=== PATIENT | female | born 1990 | race Caucasian/White ===

== ENCOUNTER → 2020-03-19 12:48 | Outpatient (BNVA) | payer MEDICAID, SELFPAY | PROVIDERS: Visit Provider Emergency Medicine | DX: Z32.01 Encounter for pregnancy test, result positive (principal) | CPT/HCPCS: 81025 ==

== ENCOUNTER 2020-03-21 10:53 | Emergency (ER) | payer MEDICAID, SELFPAY ==
[2020-03-21 11:08] VITALS: BP 120/82; PULSE 76; RESP 18; TEMP 36.6; O2SAT 99; BMI 32.3
[2020-03-21 11:30] VITALS: BP 107/76; PULSE 78; RESP 14; O2SAT 95
--- NOTE | 2020-03-21 11:39 | W.ED.PREGNAN ---
HPI - General: Chief complaint: OB/Uterine Contractions Stated complaint: possible miscarriage Time Seen by Provider: 03/21/20 11:22 Source: patient Mode of arrival: ambulatory Limitations: no limitations History of Present Illness: HPI Narrative: bleeding, possible miscarriage 6 weeks and 6 days Date of Last Menstrual Period: 02/03/20 Related Data: : 2 Review of Systems General: Reports: 10 or more systems reviewed and unremarkable except in HPI and below PFSH ED PFSH: Social History Smoking and tobacco status: never smoked Alcohol intake: never Substance/Drug Use: never History of recent travel: No Female Reproductive History: Date of last menstrual period: 02/03/20 : 2 Physical Exam Const: COMMON NORMALS: no acute distress, patient oriented x3, no limitations and alert GENERAL APPEARANCE: cooperative and comfortable ORIENTATION/CONSCIOUSNESS: Yes awake, Yes oriented to person, Yes oriented to place and Yes oriented to time HENMT: COMMON NORMALS: normocephalic, atraumatic, external ears normal, EAC's normal, TM's normal bilaterally and Normal external nose present HEAD & SCALP: normal to inspection, normocephalic and atraumatic FACE & SINUS: normal facial exam, sinuses nontender and face symmetric NOSE: Normal external nose present, Normal nares present and No nasal discharge present EXTERNAL EAR: Yes external ears normal EXTERNAL AUDITORY CANAL: EAC's normal TYMPANIC MEMBRANE: TM's normal bilaterally MOUTH: Normal oral and palatal mucosa present, lip normal and tongue normal THROAT: posterior oropharynx normal, tonsils normal and uvula midline Eye: COMMON NORMALS: Equal, round and reactive pupils present, EOMs intact bilaterally and conjunctivae normal GENERAL EYE: appearance normal, both eyes and all related structures and normal light reflex EYELID: eyelids normal CONJUNCTIVA: Yes conjunctivae normal PUPIL: Yes Equal, round and reactive pupils present EOM: Yes EOM abnormal DIRECT OPHTHALMOSCOPY: Yes normal light reflex Neck/C-Spine: COMMON NORMALS: full ROM, no lymphadenopathy, supple, no meningeal signs, no JVD and Thyroid normal GENERAL: Yes normal visual inspection THYROID: Thyroid normal CERVICAL SPINE: Yes cervical ROM normal and Yes normal cervical lordosis Lymph: LYMPHATIC: no lymphadenopathy noted Chest: COMMONS NORMALS: normal inspection of the chest and normal palpation of entire chest wall Resp: COMMON NORMALS: normal respiratory effort, No retractions and clear to auscultation bilaterally AUSCULTATION: clear to auscultation bilaterally Cardio: COMMON NORMALS: no JVD, regular rate, regular rhythm, S1 normal heart sound present, S2 normal heart sound present, No gallops present (Cardio), No clicks present (Cardio), No murmurs present (Cardio), No rub (Cardio) and Peripheral pulses 2+ throughout RATE: regular rate RHYTHM: regular rhythm HEART SOUNDS: S1 normal heart sound present and S2 normal heart sound present PERIPHERAL PULSES: Peripheral pulses 2+ throughout GI: COMMON NORMALS: Normal to inspection, nondistended, normoactive bowel sounds present, Soft to palpation, non-tender and no masses PALPATION: Yes Soft to palpation : COMMON NORMALS: Yes no CVA tenderness and Yes normal external appearance BLADDER/KIDNEY EXAM: Yes no CVA tenderness Back/Pelvis: COMMON NORMALS: no CVA tenderness, thoracic and lumbar spine normal to inspection, no thoracic nor lumbar tenderness and thoraco-lumbar ROM normal Extremity: COMMON NORMALS: normal to inspection, full ROM, capillary refill normal, no joint enlargement, no clubbing, cyanosis or edema, no calf tenderness and no pedal edema GENERAL: Yes normal exam except as noted Neuro: COMMON NORMALS: patient oriented x3, moves all extremities, no focal motor deficits, no sensory deficits noted and gait normal SENSORIUM/ORIENTATION: Yes alert, Yes oriented to person, Yes oriented to place and Yes oriented to time MENINGEAL SIGNS: Yes no meningeal signs Psych: COMMON NORMALS: mental status grossly normal, Normal thought process present, cooperative, normal affect, speech normal and activity/motor behavior normal SPEECH: Yes normal speech THOUGHT PROCESS: Normal thought process present Skin: COMMON NORMALS: no rashes or lesions noted, no wounds and turgor normal GENERAL SKIN EXAM: no rashes or lesions noted and turgor normal Course ED course: Pt presents with bleeding after two positive tests. She suspects she is 6 weeks and 6 days. Bleeding began last night. She is having no cramping blood bleeding has increased this morning. US ordered and UA. hcG quant. Reevaluation(s): Reevaluation #1: Serum quant 42. Awaiting US. UA is clean. No indication of infection. Time: 12:37 Reevaluation #2: Pt US shows no intrauterine gestation at this time. Follow up with PCP for hCg as indicated. Return to ER with worsening of symptoms. Time: 13:44 Vital Signs: Vital signs: Vital Signs Temperature 97.9 F 03/21/20 11:08 Pulse Rate 78 03/21/20 11:30 Respiratory Rate 14 03/21/20 11:30 Blood Pressure 107/76 03/21/20 11:30 Pulse Oximetry 95 03/21/20 11:30 MDM - OB/Uterine Contractions Lab Data: Labs: Lab Results 03/21/20 03/21/20 03/21/20 Range/Units 11:35 12:07 12:07 WBC (4.0-10.0) 10^3/ uL RBC (4.1-5.3) 10^6/u L Hgb (11.5-15.3) g/dL Hct (37.0-47.0) % MCV (81-99) fL MCH (28.0-34.0) pg MCHC (30.0-36.0) g/dL RDW (12.1-15.1) % Plt Count (130-400) 10^3/c mm MPV (7.4-10.4) fL Neut % (Auto) % Lymph % (Auto) % Cass % (Auto) % Eos % (Auto) % Baso % (Auto) % Neut # (Auto) (1.8-7.7) 10^3/u L Lymph # (Auto) (0.8-4.8) 10^3/u L Cass # (Auto) (0.2-0.9) 10^3/u L Eos # (Auto) (0.0-0.8) 10^3/u L Baso # (Auto) (0.0-0.1) 10^3/u L Nucleated RBC % (a uto) % Nucleated RBCs # /100WBC Ser , Jordan i-Qnt 42.41 mIU/mL Urine Color Yellow (Yellow) Urine Appearance Sl hazy (CLEAR) Urine pH 6 (5-7) Ur Specific Gravit y 1.000 L (1.005-1.030) Urine Protein Neg (Negative) Urine Glucose (UA) Norm (Normal) Urine Ketones Negative (Negative) Urine Blood 2+ H (Negative) Urine Nitrate Negative (Negative) Urine Bilirubin Neg (Negative) Urine Urobilinogen Neg (Negative) mg/dL Ur Leukocyte Elizabeth ase Negative (Negative) Urine RBC 0-4 H (0-2) /hpf Urine WBC None (0-5) /hpf Ur Squamous Epith Cells 10-15 H (0-5) /hpf Amorphous Sediment Not Reportable Urine Bacteria 1+ H (NONE) /hpf Rho(D) Type Positive 03/21/20 Range/Units 12:07 WBC 6.1 (4.0-10.0) 10^3/ uL RBC 4.46 (4.1-5.3) 10^6/u L Hgb 13.1 (11.5-15.3) g/dL Hct 40.3 (37.0-47.0) % MCV 90.4 (81-99) fL MCH 29.4 (28.0-34.0) pg MCHC 32.5 (30.0-36.0) g/dL RDW 12.2 (12.1-15.1) % Plt Count 269 (130-400) 10^3/c mm MPV 10.7 H (7.4-10.4) fL Neut % (Auto) 69.5 % Lymph % (Auto) 24.1 % Cass % (Auto) 5.0 % Eos % (Auto) 0.7 % Baso % (Auto) 0.5 % Neut # (Auto) 4.22 (1.8-7.7) 10^3/u L Lymph # (Auto) 1.5 (0.8-4.8) 10^3/u L Cass # (Auto) 0.3 (0.2-0.9) 10^3/u L Eos # (Auto) 0.0 (0.0-0.8) 10^3/u L Baso # (Auto) 0.0 (0.0-0.1) 10^3/u L Nucleated RBC % (a uto) 0 % Nucleated RBCs # 0.0 /100WBC Ser , Jordan i-Qnt mIU/mL Urine Color (Yellow) Urine Appearance (CLEAR) Urine pH (5-7) Ur Specific Gravit y (1.005-1.030) Urine Protein (Negative) Urine Glucose (UA) (Normal) Urine Ketones (Negative) Urine Blood (Negative) Urine Nitrate (Negative) Urine Bilirubin (Negative) Urine Urobilinogen (Negative) mg/dL Ur Leukocyte Elizabeth ase (Negative) Urine RBC (0-2) /hpf Urine WBC (0-5) /hpf Ur Squamous Epith Cells (0-5) /hpf Amorphous Sediment Urine Bacteria (NONE) /hpf Rho(D) Type Imaging Data^: US: Radiologist's impression: [facility] [address] [place] [address] Ultrasound Report Signed Patient: Patricia Morales Unit #: [id number] : 1990 Age/Sex: 29 / F ADM Date: 03/21/20 Loc: ER Room/Bed: Attending Dr: Ordering Provider/Ordering MD: Tita Hayes NP Date of Service: 03/21/20 Procedure(s): US OB <=14 wk fetus w transvag Accession Number(s): [id number] Report Number: [id number] WS: [id number] EARLY OBSTETRICAL ULTRASOUND (<14 WEEKS). HISTORY: bleeding COMPARISON: None available. Transabdominal and transvaginal imaging is performed. Uterus is retroverted. Mildly thickened endometrium. No intrauterine gestational sac is identified. Endometrial thickness is 1.8 cm. RIGHT ovary measures 3.9 x 2.2 x 2.5 cm. Small follicles are present. There is a small amount of free fluid in the RIGHT adnexa. Within the free fluid there is an area of increased echogenicity which may be clot. LEFT ovary measures 2.8 x 1.6 x 3.1 cm. Small follicles. US/US OB <=14 wk fetus w transvag IMPRESSION: 1. No intrauterine gestation identified. There is mild thickening of the endometrium. Ectopic cannot be excluded if there is a positive beta hCG. 2. Small amount of free fluid in the RIGHT adnexa. 3. Recommend follow-up with beta hCG evaluation and ultrasound evaluation as necessary to exclude ectopic. Dictated By: Yolanda Maloney DO Signed By: Yolanda Maloney DO Signed Date/Time: 03/21/20 1304 DD/ 1302 Discharge Plan Discharge Patient Disposition: Home Clinical Impression: Complete miscarriage Condition: Stable Prescriptions: No Action 28 mg iron- 800 mcg Tablet 1 tab PO DAILY RF: 0 Discharge Orders: Discharge Order (Routine); Ordered 03/21/20 Ordered By: Tita Hayes Discharge Diet: Usual diet Discharge Activity: Increase activity as tolerated Activity Restrictions/Additional Instructions: Increase water, avoid sex until you have stopped bleeding. Return to ER if you develop a fever. Follow up with your primary for a repeat HcG level in the next 2 to 3 days. Stand Alone Forms: Work/School Release Coding Level of Care Code ED Hall Tender for Alixg Fwd Exam Comprehensive
--- NOTE | 2020-03-21 11:55 | US_ITS ---
WS: [id number] EARLY OBSTETRICAL ULTRASOUND (<14 WEEKS). HISTORY: bleeding COMPARISON: None available. Transabdominal and transvaginal imaging is performed. Uterus is retroverted. Mildly thickened endomet rium. No intrauterine gestational sac is identified. Endometrial thickness is 1.8 cm. RIGHT ovary measures 3.9 x 2.2 x 2.5 cm. Small follicles are present. There is a small amount of free fluid in the RIGHT adnexa. Within the free fluid there is an area of increased echogenicity which ma y be clot. LEFT ovary measures 2.8 x 1.6 x 3.1 cm. Small follicles. US/US OB <=14 wk fetus w transvag IMPRESSION: 1. No intrauterine gestation identified. There is mild thickening of the endom etrium. Ectopic cannot be excluded if there is a positive beta hCG. 2. Small amount of free fluid in the RIGHT adnexa. 3. Recommend follow-up with beta hCG evaluation and ultrasound evaluation as n ecessary to exclude ectopic.
[2020-03-21 12:13] LABS: Add Urine Microscopic? YES; Bilirubin Urine Neg (Negative); Blood Urine 2+ (Negative); Glucose Urine UA Norm (Normal); Ketones Urine Negative (Negative); Leukocyte Esterase Urine Negative (Negative); Nitrate Urine Negative (Negative); Protein Urine Neg (Negative); Urine Appearance SL Hazy (CLEAR); Urine Color Yellow (Yellow); Urobilinogen Urine Neg (Negative); pH Urine 6 (5-7)
[2020-03-21 12:14] LABS: Add Urine Culture? No; Bacteria Urine 1+ /hpf; RBC Urine 0-4 /hpf (0-2)
[2020-03-21 12:17] LABS: Basophils % 0.5 %; Eosinophils % 0.7 %; Hematocrit 40.3 % (37.0-47.0); Hemoglobin 13.1 g/dL (11.5-15.3); Lymphocytes # 1.5 10^3/uL (0.8-4.8); Lymphocytes % 24.1 %; Mean Corpuscular HGB Conc 32.5 g/dL (30.0-36.0); Mean Corpuscular Hemoglobin 29.4 pg (28.0-34.0); Mean Corpuscular Volume 90.4 fL (81-99); Mean Platelet Volume 10.7 fL (7.4-10.4); Monocytes # 0.3 10^3/uL (0.2-0.9); Neutrophils # 4.22 10^3/uL (1.8-7.7); Neutrophils % 69.5 %; Nucleated Red Blood Cells % 0 %; Platelet Count 269 10^3/cmm (130-400); Red Blood Count 4.46 10^6/uL (4.1-5.3); Red Cell Distribution Width 12.2 % (12.1-15.1); White Blood Count 6.1 10^3/uL (4.0-10.0)
[2020-03-21 12:32] LABS: HCG Quantitative 42.41 mIU/mL
--- NOTE | 2020-03-21 13:10 | PC.NURSE ---
Pt and family updated on plan of care, comfort measures offered, no other immediate needs identified, will continue to monitor.
== END 2020-03-21 14:07 | disposition home or self-care (01) ==
PROVIDERS: Emergency Medicine; Emergency Provider Nurse Practitioner Family
DX: O03.9 Complete or unspecified spontaneous abortion without complication (principal)
CPT/HCPCS: 12345; 36415; 76801; 76817; 81001; 84702; 85025; 99281; 99283

== ENCOUNTER → 2020-09-04 09:15 | Outpatient (BNVA) | payer MEDICAID, SELFPAY | PROVIDERS: Visit Provider Psychiatry & Neurology Psychiatry | DX: F32.9 Major depressive disorder, single episode, unspecified (principal) | CPT/HCPCS: 90792 ==

== ENCOUNTER → 2020-10-17 13:13 | Outpatient (BNVA) | payer MEDICAID, SELFPAY | PROVIDERS: Visit Provider Psychiatry & Neurology Psychiatry | DX: F32.9 Major depressive disorder, single episode, unspecified (principal) | CPT/HCPCS: 99214 ==

== ENCOUNTER → 2020-12-19 12:43 | Outpatient (BNVA) | payer MEDICAID, SELFPAY | PROVIDERS: Visit Provider Psychiatry & Neurology Psychiatry | DX: F32.9 Major depressive disorder, single episode, unspecified (principal) | CPT/HCPCS: 99214 ==

== ENCOUNTER → 2021-03-13 12:31 | Outpatient (BNVA) | payer MEDICAID, SELFPAY | PROVIDERS: Visit Provider Psychiatry & Neurology Psychiatry | DX: F32.9 Major depressive disorder, single episode, unspecified (principal) | CPT/HCPCS: 99214 ==

== ENCOUNTER → 2021-07-04 11:29 | Outpatient (BNVA) | payer MEDICAID, SELFPAY | PROVIDERS: Visit Provider Family Medicine | DX: M79.671 Pain in right foot (principal) | CPT/HCPCS: 73630 ==

== ENCOUNTER → 2021-07-20 12:27 | Outpatient (BNVA) | payer MEDICAID, SELFPAY | PROVIDERS: Visit Provider Nurse Practitioner Family | DX: Z11.52 Encounter for screening for COVID-19 (principal); Z20.822 Contact with and (suspected) exposure to COVID-19 | CPT/HCPCS: 87635 ==

== ENCOUNTER 2021-08-22 11:09 | Outpatient (CLI) | payer MEDICAID, SELFPAY | END 2021-08-22 11:10 | disposition home or self-care (01) | LOC: SPT 11:10 | PROVIDERS: Visit Provider Podiatrist Foot & Ankle Surgery | DX: Z46.89 Encounter for fitting and adjustment of other specified devices (principal); M72.2 Plantar fascial fibromatosis; M79.671 Pain in right foot | CPT/HCPCS: 97760; L4397 ==

== ENCOUNTER → 2022-01-22 13:58 | Outpatient (BNVA) | payer MEDICAID, SELFPAY | PROVIDERS: Visit Provider Nurse Practitioner Family | DX: N91.2 Amenorrhea, unspecified (principal); N91.1 Secondary amenorrhea; R11.0 Nausea; R53.83 Other fatigue | CPT/HCPCS: 80053; 84443; 84702 ==

== ENCOUNTER → 2022-02-05 15:11 | Outpatient (BNVA) | payer MEDICAID, SELFPAY | PROVIDERS: Visit Provider Podiatrist Foot & Ankle Surgery | DX: M21.6X1 Other acquired deformities of right foot (principal); M19.071 Primary osteoarthritis, right ankle and foot | CPT/HCPCS: 99213 ==

== ENCOUNTER → 2022-10-07 13:49 | Outpatient (BNVA) | payer MEDICAID, SELFPAY | PROVIDERS: Visit Provider Nurse Practitioner Family | DX: R10.9 Unspecified abdominal pain (principal); N39.0 Urinary tract infection, site not specified; G44.209 Tension-type headache, unspecified, not intractable | CPT/HCPCS: 80053 ==

== ENCOUNTER 2024-10-14 11:55 | Outpatient (CLI) | payer MEDICAID, SELFPAY ==
--- NOTE | 2024-10-14 12:00 | XR_ITS ---
WS: [id number] Exam: XR KUB [id number] Date/Time of Exam: 10/14/2024 12:21 PM Reason For Exam: K59.00 - Constipation, unspecified No bowel obstruction nor free air. Moderate amount of stool in the transverse and RIGHT colon. No sign of organ enlargement. Mild levoscoliosis of the lumbar spine. Remaining bony elements are unremarkable. XR/XR KUB [id number] IMPRESSION: 1. No acute abdominal finding. 2. Moderate amount of retained stool in the transverse and RIGHT colon.
== END 2024-10-14 11:56 | disposition home or self-care (01) ==
LOC: LAB 11:59
PROVIDERS: PCP Nurse Practitioner Family; Visit Provider Nurse Practitioner Family
DX: K59.00 Constipation, unspecified (principal); R10.11 Right upper quadrant pain; M41.86 Other forms of scoliosis, lumbar region
CPT/HCPCS: 74018; 80053; 85025

== ENCOUNTER 2024-10-21 09:19 | Outpatient (CLI) | payer MEDICAID, SELFPAY ==
--- NOTE | 2024-10-21 09:00 | US_ITS ---
WS: [id number] RIGHT UPPER QUADRANT ULTRASOUND HISTORY: R10.11 - Right upper quadrant pain COMPARISON: None available. Liver: 13.3 cm in length. Normal size liver. Hyperechoic focus towards the diaphragm measures 0.7 x 0.7 x 0.6 cm. Most likely a hemangioma. No additional masses. Portal Vein: Normal hepatopetal flow with monophasic waveform. Gallbladder: Normally distended gallbladder. There is a stone in the gallbladder measuring 2.2 cm. There is also mild diffuse gallbladder wall thickening with no edema. CBD: 0.2 cm Pancreas: Limited. Right kidney: 8.6 cm in length. Normal size and echogenicity. No hydronephrosis or mass. Aorta and IVC: Unremarkable abdominal aorta and IVC. No ascites. US/US gall bladder 38739 IMPRESSION: 1. Cholelithiasis without evidence for acute cholecystitis. There is mild gall bladder wall thickening which is probably related to chronic gallbladder diseas e or hepatocellular disease. 2. Hepatic hemangioma, 0.7 x 0.7 x 0.6 cm.
== END 2024-10-21 09:20 | disposition home or self-care (01) ==
PROVIDERS: PCP Nurse Practitioner Family; Visit Provider Nurse Practitioner Family
DX: R10.11 Right upper quadrant pain (principal); K80.20 Calculus of gallbladder without cholecystitis without obstruction; R93.3 Abnormal findings on diagnostic imaging of other parts of digestive tract; R93.2 Abnormal findings on diagnostic imaging of liver and biliary tract
CPT/HCPCS: 76705

== ENCOUNTER 2024-11-10 06:15 | Day surgery (SDC) | payer MEDICAID, SELFPAY ==
[2024-11-10] VITALS (11 sets, daily range): BP systolic 106–117; BP diastolic 69–90; PULSE 60–89; RESP 15–19; TEMP 36.1–36.2; O2SAT 94–100; BMI 29.0
[2024-11-10] MEDS: sodium chloride 0.9% 1,000 ML 30 ML IV (06:51)
[2024-11-10 06:55] LABS: OR HCG Qualitative Urine Negative (Negative)
--- NOTE | 2024-11-10 06:57 | W.PM.OPSUD ---
Surgery/Procedure H&P Update DATE OF PROCEDURE: November 10, 2024 DATE H&P PERFORMED: 10/28/24 H&P UPDATE INFORMATION: I have reviewed H&P completed within last 30 days, I have examined patient prior to procedure and No changes to prior documentation PLANNED PROCEDURE: Operation Date: 11/10/24 08:00 Proposed Procedures p Laparoscopic Cholecystectomy 89705 K80.20 K82.9(Not Applicable) - Eloy De La Paz MD
[2024-11-10] MEDS: ceFAZolin 2,000 mg SDV 2000 MG IVP (07:37)
--- NOTE | 2024-11-10 07:50 | ANES.PREANE2 ---
Pre-Anesthetic Assessment Height/Weight: Height 1.57 m Weight 72.121 kg Temp Pulse Resp BP Pulse Ox O2 Del Method 97.2 F L 60 18 117/80 96 Room Air 11/10/24 06:31 11/10/24 06:31 11/10/24 06:31 11/10/24 06:31 11/10/24 06:31 11/10/24 06:39 Preop Diagnosis: Cholecystitit Operation Date: 11/10/24 08:00 Proposed Procedures p Laparoscopic Cholecystectomy 81120 K80.20 K82.9(Not Applicable) - Eloy De La Paz MD Familial anesthetic complications: none Was Beta Lucio taken within 24 hours: N/A Was Clonidine taken within 24 hours: N/A Last intake: Intake Last Liquid Date 11/09/24 Last Liquid Time 23:30 Last Solid Date 11/09/24 Last Solid Time 18:30 Social Tobacco and No alcohol Exam alert, oriented x 3, clear to auscultation bilaterally and regular rate & rhythm Airway Cervical ROM: within normal limits Mallampati: Class III Comments: Comments: Endentulous. Small mouth History/ROS No significant history except as noted Pulmonary None reported Smoker CV/HEM None reported None reported Hepatic None reported GI None reported Metabolic None reported Musc/skel None reported Neuropsych Depression Anesthetic Plan ASA status: 2 Anesthesia: General Risk of > 500 ml blood loss (7ml/kg in children): No Medications/Allergies Home Medications ?Medication ?Instructions ?Recorded ?Confirmed ?Last Taken ?Type No Known Home Medications 10/28/24 11/10/24 Unknown History Allergies Allergy/AdvReac Type Severity Reaction Status Date / Time bupropion (From Wellbutrin) Allergy hives Verified 10/28/24 09:36 Sulfa (Sulfonamide Allergy throat Verified 10/28/24 09:36 Antibiotics) swelling Current Medications Generic Name Dose Route Start Last Admin Trade Name Freq PRN Reason Stop Dose Admin Sodium Chloride 1,000 mls @ 30 mls/hr 11/10/24 06:30 11/10/24 06:51 Sodium Chloride 0.9% IV 11/11/24 06:29 30 mls/hr .Q24H CHEKO Administration PFSH Anesthesia Medical History Miscarriage within last 12 months 03/2020 Chronic deafness of both ears MDD (major depressive disorder) Family History (Updated 10/28/24 @ 09:42 by ISIS Serna) Mother COPD (chronic obstructive pulmonary disease) Grandmother Leukemia Social History (Updated 10/28/24 @ 09:36 by ISIS Serna) Smoking and tobacco/nicotine status: current every day tobacco/nicotine user (vapes/ w nicotine) Alcohol intake: never Substance/Drug Use: never Lives independently: No Household members: family Marital status: Legally Current gender identity: Female Female Reproductive History Date of last menstrual period: 11/02/24
[2024-11-10] MEDS: lidocaine-epi 1% 20 mL INJ 10 ML INJECTION (08:32)
--- NOTE | 2024-11-10 08:47 | P.OP_ITS ---
Operative Report Date of procedure: November 10, 2024 Pre-op diagnosis: Symptomatic cholelithiasis Post-op diagnosis: Chronic cholecystitis Post-op findings: Gallbladder filled with stones. Inflammatory rind surrounding gallbladder. Procedure done: Laparoscopic cholecystectomy Implants: N/A Specimens removed/disposition: Gallbladder sent to pathology Pathology: Gallbladder sent to pathology Surgeon: Eloy De La Paz MD Amplifier Mechanic: N/A Anesthesia: General Estimated blood loss (mL): 20 Complications: N/A Findings: Gallbladder filled with stones. Inflammatory rind surrounding gallbladder. Condition: stable Disposition: same day Brief History: 34-year-old female who presented with symptomatic cholelithiasis. Discussed risk and benefits and patient agreed to proceed with laparoscopic cholecystectomy possible open. Procedure: I discussed the risks and benefits of laparoscopic cholecystectomy, and obtained consent prior to proceeding to the operating room. SCDs were utilized. Prophylactic antibiotics were administered. General anesthesia was induced. The patient was placed supine, and was prepped and draped in the usual sterile fashion. Insufflation to 15mmHg was achieved using a Veress needle at Contreras's point. A 12mm optiview trocar was placed at the umbilicus under direct visualization. The left upper quadrant was inspected, and no injuries were noted. Two 5mm ports were placed in the right upper quadrant, and a 12mm working port was placed in the epigastrium. The gallbladder was then retracted cephalad through the lateral RUQ port, and the infundibulum grabbed through the medial RUQ port and retracted laterally. The gallbladder was inflammed consistent with the diagnosis of chronic cholecystitis. I proceeded to score the peritoneum over the medial aspect of the gallbladder using a laparoscopic hook with electrocautery. Then the infundibulum was retracted medially in order to score the peritoneum over the lateral aspect of the galbladder. Using a combination of energy and blunt dissection with the [place] and a Kittner dissector, the cystic artery and cystic duct were dissected. I then proceeded to dissect the cystic plate in order to to achieve the critical view of safety. The cystic artery and the cystic duct were clipped three times (leaving two clips on the proximal end of both structures). I then proceeded to dissect the gallbladder off the liver using hook electrocautery. The specimen was placed in an endocatch bag and retrieved from the abdomen through the port on the epigastrium. I then irrigated the gallbladder fossa with 1L of NS to confirm adequate hemostasis and the absence of any bile leaks. The gallbladder fossa was then cauterized again. Prior to ending the laparoscopic portion, I examined the rest of the abdomen and did not find any abnormalities or injuries. The abdomen was then desufflated, and the 12mm port at the umbilicus was closed using 0 vicryl on a UR needle after irrigating copiously. Skin was closed using 4-0 monocryl and surgical glue. The patient woke up from anesthesia and transferred to PACU without any complications.
[2024-11-10] MEDS: oxyCODONE 5 mg IR Tab/Cap PO (09:40)
--- NOTE | 2024-11-10 10:04 | ANE.PACU2 ---
Inpatient post-anesthesia follow up: Airway intact: Yes Vital signs: Temperature 97.1 F Pulse Rate 78 Respiratory Rate 18 Blood Pressure 114/90 Pulse Oximetry 98 Oxygen Delivery Me thod Room Air Oxygen Flow Rate Fraction of Inspir ed Oxygen Hydration adequate: Yes Nausea and vomiting: No Pain level: 1 Mental status: Baseline
== END 2024-11-10 09:50 | disposition home or self-care (01) ==
PROVIDERS: Student in an Organized Health Care Education/Training Program; PCP Nurse Practitioner Family; Visit Provider Student in an Organized Health Care Education/Training Program
PROC: 0FT44ZZ Resection of Gallbladder, Percutaneous Endoscopic Approach (ICD-10-PCS; CPT 47562; principal; 2024-11-10 08:00)
DX: K80.12 Calculus of gallbladder with acute and chronic cholecystitis without obstruction (principal); Z88.2 Allergy status to sulfonamides; Z88.8 Allergy status to other drugs, medicaments and biological substances; F17.290 Nicotine dependence, other tobacco product, uncomplicated
CPT/HCPCS: 47562; 81025; 88304; J0690; J2250; J2704; J3010; J3490; J7030; J9999

== ENCOUNTER 2024-11-28 20:57 | Emergency (ER) | payer MEDICAID, SELFPAY ==
[2024-11-28 21:16] VITALS: BP 115/83; PULSE 119; RESP 16; TEMP 36.8; O2SAT 99; BMI 29.0
[2024-11-28 22:00] VITALS: BP 116/95; PULSE 111; O2SAT 95
[2024-11-28 22:00] LABS: Bilirubin Urine 2+ (Negative); Blood Urine Trace (Negative); Glucose Urine UA Negative (Normal); Ketones Urine 1+ (Negative); Leukocyte Esterase Urine 2+ (Negative); Nitrate Urine Negative (Negative); Protein Urine 1+ (Negative); Specific Gravity, Urine 1.024 (1.005-1.030); Urine Appearance Cloudy (CLEAR); Urine Color Dark Yellow (Yellow); pH Urine 5.5 (5-7)
--- NOTE | 2024-11-28 22:01 | XRR_ITS ---
PROCEDURE INFORMATION: Exam: XR Abdomen Exam date and time: 11/28/2024 10:07 PM Age: 34 years old Clinical indication: Abdominal pain; Localized; Prior surgery; Surgery date: <1 month; Surgery type: Gb 11/10/2024; C/O left sided abd pain; Additional info: Left sided pain TECHNIQUE: Imaging protocol: Radiologic exam of the abdomen. Views: Frontal supine view of the abdomen. 1 View. COMPARISON: CR XR KUB [id number] 10/14/2024 12:26 PM FINDINGS: Gastrointestinal tract: Gas-filled loop of large bowel. Nonobstructive bowel gas pattern of the small bowel. Organs: Cholecystectomy clips in the right upper quadrant. Bones/joints: Unremarkable. XR/XR KUB portable [id number] IMPRESSION: As above.
--- NOTE | 2024-11-28 22:02 | ED_ITS ---
HPI - Abdominal Pain 2 General: Chief Complaint: Abdominal Pain Stated Complaint: 3.5 weeks post op, abd pain, n/v Time Seen by Provider: 11/28/24 21:57 History of Present Illness: Patient presents with worsening post-operative pain following cholecystectomy performed by Dr. Yu on November 10. Reports significant abdominal pain that impairs mobility and ability to sit up. Pain is primarily localized to the right side of the abdomen. Patient also describes associated symptoms including fever (reported 100.4?F a few days ago, improved with Tylenol), one episode of dry heaving today, and diaphoresis despite using air conditioning. Patient notes some chest discomfort with deep breathing. GI Review: Reports constipation post-surgery, with last bowel movement today at 0500, described as 'a little bit.' Prior to this, bowel movements occurred every couple of days. Has been taking pantoprazole and stool softeners as prescribed post-operatively. Patient expresses concern about potential post-operative complications, prompting ED visit. Associated Symptoms: Reports constipation, GI cramping and excessive flatus Related Data Previous Rx's ?Medication ?Instructions ?Recorded bisacodyl 5 mg tablet,delayed 5 mg PO DAILY 30 days #3 0 tabs 11/22/24 release (Dulcolax (bisacodyl)) pantoprazole 40 mg tablet,delayed 40 mg PO BID 30 days #60 tabs 11/22/24 release (Protonix) Allergies Allergy/AdvReac Type Severity Reaction Status Date / Time bupropion (From Wellbutrin) Allergy hives Verified 10/28/24 09:36 Sulfa (Sulfonamide Allergy throat Verified 10/28/24 09:36 Antibiotics) swelling Review of Systems 2 General: Reports: 10 or more systems reviewed and unremarkable except in HPI and below GI: Reports: constipation, GI cramping and excessive flatus PFSH ED 2 PFSH: Medical History Miscarriage within last 12 months 03/2020 Chronic deafness of both ears MDD (major depressive disorder) Family History Mother COPD (chronic obstructive pulmonary disease) Grandmother Leukemia Social History Smoking and tobacco/nicotine status: current every day tobacco/nicotine user (vapes/ w nicotine) Alcohol intake: never Substance/Drug Use: never Lives independently: No Household members: family Marital status: Legally Current gender identity: Female Physical Exam 2 Const: COMMON NORMALS: no acute distress, patient oriented x3 and alert Chest: COMMONS NORMALS: normal inspection of the chest Resp: COMMON NORMALS: normal respiratory effort and No use of accessory muscles Cardio: COMMON NORMALS: regular rate and regular rhythm RATE: regular rate RHYTHM: regular rhythm GI: COMMON NORMALS: Normal to inspection, nondistended, normoactive bowel sounds present, Soft to palpation, No hepatosplenomegaly present and no masses; negative for non-tender (Mild tenderness on left side to palpation) P ALPATION: Yes Soft to palpation and Yes No hepatosplenomegaly present Neuro: COMMON NORMALS: patient oriented x3 SENSORIUM/ORIENTATION: Yes alert Skin: COMMON NORMALS: no rashes or lesions noted and turgor normal GENERAL SKIN EXAM: no rashes or lesions noted and turgor normal Course 2 Vital Signs: Vital signs: Vital Signs Temperature 98.2 F 11/28/24 21:16 Pulse Rate 97 11/28/24 23:00 Respiratory Rate 16 11/28/24 21:16 Blood Pressure 131/84 11/28/24 23:00 Pulse Oximetry 93 11/28/24 23:00 Oxygen Delivery Me thod Room Air 11/28/24 21:16 MDM - Abdominal Pain Medical Decision Making 1. Post-Cholecystectomy Pain with Constitutional Symptoms - Will obtain abdominal X-ray to evaluate for possible bowel obstruction or other acute process - Laboratory studies to assess for infection or other post-operative complications - Plan to administer pain medication for symptom management 2. Post-operative Constipation - Continue current bowel regimen - Will assess need for additional interventions based on X-ray findings 3. Disposition - Await results of diagnostic studies - Will reassess after pain control and initial workup completed Differential Diagnosis Likely abdominal pain, constipation, diverticulitis, gastroenteritis and small bowel obstruction Medical Records Patient felt better after intervention the emergency department. Her vital signs normalized and her labs were reviewed. These labs were largely unremarkable I think she likely has a contaminated urinalysis given all the squamous epithelial cells and lack of urinary symptoms or fever. The KUB was reviewed and she does have quite a bit of gas but also quite a bit of right- sided stool I think this likely accounts for her symptoms. I do not think that she is obstructed based on history physical examination and findings on the imaging. I have recommended a bowel regiment and return and follow-up precautions were discussed in detail. Lab Data 11/28/24 22:08 11/28/24 22:08 Labs/Radiology: Radiology Impressions KUB X-Ray 11/28/24 22:01 IMPRESSION: As above. Laboratory Results WBC 10.17 10^3/uL (3.29-11.43) 11/28/24 22:08 RBC 4.64 10^6/uL (3.85-5.65) 11/28/24 22:08 Hgb 13.40 g/dL (11.27-16.99) 11/28/24 22:08 Hct 41.6 % (36-47) 11/28/24 22:08 MCV 89.7 fl (85-98) 11/28/24 22:08 MCH 28.9 pg (27-33) 11/28/24 22:08 MCHC 32.2 g/dL (30-55) 11/28/24 22:08 RDW 11.9 % (12.1-15.1) L 11/28/24 22:08 Plt Count 659 10^3/cmm (157-399) H 11/28/24 22:08 MPV 10.0 fL (7.4-10.4) 11/28/24 22:08 Neut % (Auto) 74.7 % 11/28/24 22:08 Lymph % (Auto) 12.2 % 11/28/24 22:08 [place] % (Auto) 5.8 % 11/28/24 22:08 Eos % (Auto) 6.0 % 11/28/24 22:08 Baso % (Auto) 1.0 % 11/28/24 22:08 Neut # (Auto) 7.60 10^3/uL (1.8-7.7) 11/28/24 22:08 Lymph # (Auto) 1.2 10^3/uL (0.8-4.8) 11/28/24 22:08 [place] # (Auto) 0.6 10^3/uL (0.2-0.9) 11/28/24 22:08 Eos # (Auto) 0.6 10^3/uL (0.0-0.8) 11/28/24 22:08 Baso # (Auto) 0.1 10^3/uL (0.0-0.1) 11/28/24 22:08 Nucleated RBC % (auto) 0 % 11/28/24 22:08 Nucleated RBCs # 0.0 /100WBC 11/28/24 22:08 Sodium 136 mmol/L (136-145) 11/28/24 22:08 Potassium 4.1 mmol/L (3.5-5.1) 11/28/24 22:08 Chloride 95 mmol/L (98-107) L 11/28/24 22:08 Carbon Dioxide 28 mmol/L (22-29) 11/28/24 22:08 Anion Gap 17.1 (5-19) 11/28/24 22:08 BUN 8 mg/dL (6-20) 11/28/24 22:08 Creatinine 0.7 mg/dL (0.5-0.9) 11/28/24 22:08 GFR Calculation 95.2 mL/min (90-130) 11/28/24 22:08 Glucose 113 mg/dL (65-115) 11/28/24 22:08 Calculated Osmolality 281 mOsm/kg (285-295) L 11/28/24 22:08 Lactic Acid 0.9 mmol/L (0.5-2.2) 11/28/24 22:08 Calcium 10.0 mg/dL (8.5-10.5) 11/28/24 22:08 Magnesium 2.0 mg/dL (1.7-2.3) 11/28/24 22:08 Total Bilirubin 1.7 mg/dL (0.15-1.2) H 11/28/24 22:08 AST 11 U/L (0-32) 11/28/24 22:08 ALT 16 U/L (0-33) 11/28/24 22:08 Alkaline Phosphatase 389 U/L (35-105) H 11/28/24 22:08 Total Protein 7.9 g/dL (6.6-8.7) 11/28/24 22:08 Albumin 3.9 g/dL (3.5-5.2) 11/28/24 22:08 Globulin 4.0 g/dL (1.3-4.6) 11/28/24 22:08 Urine Color Dark yellow (Yellow) A 11/28/24 21:50 Urine Appearance Cloudy (CLEAR) A 11/28/24 21:50 Urine pH 5.5 (5-7) 11/28/24 21:50 Ur Specific [place] 1.024 (1.005-1.030) 11/28/24 21:50 Urine Protein 1+ (Negative) A 11/28/24:50 Urine Glucose (UA) Negative (Normal) 11/28/24:50 Urine Ketones 1+ (Negative) H 11/28/24 21:50 Urine Blood Trace (Negative) A 11/28/24 21:50 Urine Nitrate Negative (Negative) 11/28/24: Urine Bilirubin 2+ (Negative) H 11/28/24: Urine Urobilinogen 1.0 mg/dL (Negative) 11/28/24 21:50 Ur Leukocyte Esterase 2+ (Negative) A 11/28/24:50 Urine RBC 3-5 /hpf (0-2) 11/28/24 21:50 Urine WBC 21-50 /hpf (0-5) H 11/28/24 21:50 Ur Squamous Epith Cells 21-50 /hpf (0-5) H 11/28/24 21:50 Amorphous Sediment Not Reportable 11/28/24 21:50 Urine Bacteria 4+ /hpf (NONE) H 11/28/24 21:50 Hyaline Casts 2.46 /lpf 11/28/24 21:50 All radiology interpretation(s) finalized by discharge Discharge Plan Discharge Patient Disposition: Home Clinical Impression: Abdominal pain Constipation Qualifiers: Constipation type: unspecified constipation type Qualified Code(s): K59.00 - Constipation, unspecified Condition: Stable Prescriptions: No Action pantoprazole [Protonix] 40 mg tablet,delayed release (DR/EC) 40 mg PO BID 30 Days Qty: 60 2RF bisacodyl [Dulcolax (bisacodyl)] 5 mg tablet,delayed release (DR/EC) 5 mg PO DAILY 30 Days Qty: 30 2RF Rx Instructions: take 4 tabs at 2:00PM the day before the colonoscopy procedure Discharge Orders: Discharge ED (Routine); Ordered 11/28/24 Ordered By: Fran Li Referrals: Yamila Ferreira FNP [Primary Care Provider, [facility]] Discharge Diet: Usual diet Discharge Activity: Resume usual activity Patient Instructions: Abdominal Pain (ED), Opioid Safety, Pain Management Activity Restrictions/Additional Instructions: 1. Increase fluids fiber and activity. Limit any medications that could be potentially constipating and start MiraLAX and/or magnesium citrate 2. Follow-up with surgeon next week for recheck and reevaluation. 3. Return here for high fever intractable abdominal pain or vomiting. Print Language: Amharic Coding Level of Care Code ED [facility] for [facility]
[2024-11-28 22:03] LABS: Add Urine Microscopic? YES; Bacteria Urine 4+ /hpf; Hyaline Casts Urine 2.46 /lpf; Squamous Epithelial Cell Urine 21-50 /hpf (0-5); WBC Urine 21-50 /hpf (0-5)
[2024-11-28 22:14] LABS: Basophils # 0.1 10^3/uL (0.0-0.1); Eosinophils # 0.6 10^3/uL (0.0-0.8); Hematocrit 41.6 % (36-47); Lymphocytes # 1.2 10^3/uL (0.8-4.8); Lymphocytes % 12.2 %; Mean Corpuscular HGB Conc 32.2 g/dL (30-55); Mean Corpuscular Hemoglobin 28.9 pg (27-33); Mean Corpuscular Volume 89.7 fl (85-98); Monocytes # 0.6 10^3/uL (0.2-0.9); Monocytes % 5.8 %; Neutrophils % 74.7 %; Nucleated Red Blood Cells % 0 %; Platelet Count 659 10^3/cmm (157-399); Red Blood Count 4.64 10^6/uL (3.85-5.65); Red Cell Distribution Width 11.9 % (12.1-15.1); White Blood Count 10.17 10^3/uL (3.29-11.43)
[2024-11-28] MEDS: ketorolac 30 mg/mL INJ 15 MG IVP (22:21)
[2024-11-28] MEDS: sodium chloride 0.9% 1,000 ML 999 ML IV (22:21)
[2024-11-28 22:30] VITALS: BP 110/78; PULSE 90; O2SAT 94
[2024-11-28 22:35] LABS: Alanine Aminotransferase 16 U/L (0-33); Albumin Level 3.9 g/dL (3.5-5.2); Alkaline Phosphatase 389 U/L (35-105); Anion Gap 17.1 (5-19); Aspartate Amino Transferase 11 U/L (0-32); Blood Urea Nitrogen 8 mg/dL (6-20); Carbon Dioxide 28 mmol/L (22-29); Chloride 95 mmol/L (98-107); Glomerular Filtration Rate 95.2 mL/min (90-130); Glucose 113 mg/dL (65-115); Lactic Sepsis W/Reflex 0.9 mmol/L (0.5-2.2); Osmolality Calculated 281 mOsm/kg (285-295); Potassium 4.1 mmol/L (3.5-5.1); Sodium 136 mmol/L (136-145); Total Bilirubin 1.7 mg/dL (0.15-1.2); Total Protein 7.9 g/dL (6.6-8.7)
[2024-11-28 23:00] VITALS: BP 131/84; PULSE 97; O2SAT 93
[2024-11-28 23:30] VITALS: BP 117/87; PULSE 103; O2SAT 94
[2024-11-28 23:56] VITALS: BP 117/87; PULSE 104; O2SAT 94
== END 2024-11-28 23:56 | disposition home or self-care (01) ==
PROVIDERS: Student in an Organized Health Care Education/Training Program; Emergency Provider Family Medicine; PCP Nurse Practitioner Family
DX: G89.18 Other acute postprocedural pain (principal); K59.00 Constipation, unspecified; R10.9 Unspecified abdominal pain; Z90.49 Acquired absence of other specified parts of digestive tract
CPT/HCPCS: 74018; 80053; 81001; 83605; 83735; 85025; 96361; 96374; 99284; J1885; J7030

== ENCOUNTER → 2025-06-22 10:09 | Outpatient (BNVA) | payer MEDICAID, SELFPAY | PROVIDERS: PCP Nurse Practitioner Family; Visit Provider Nurse Practitioner Family | DX: R50.9 Fever, unspecified (principal) | CPT/HCPCS: 87400; 87426 ==